=== PATIENT | female | born 1970 | race Caucasian/White ===

== ENCOUNTER 2020-05-01 08:13 | Outpatient (CLI) | payer MEDICAID, SELFPAY ==
--- NOTE | 2020-05-01 | MR_ITS ---
WS: [id number] MRI RIGHT SHOULDER HISTORY: POSSIBLE FOREIGN BODY, HX OF SHOULDER CUFF REPAIR COMPARISON: 04/16/2016 TECHNIQUE: Multiplanar sequences of the shoulder joint are submitted. Moderate AC joint hypertrophy. Small osteophyte from the distal undersurface of acromion with mild en croachment. Micro-metallic artifact at the AC joint from prior surgery. Full-thickness tear extends obliquely through the distal supraspinatus tendon over the humeral head. This tears along the far anterior surface of the supraspinatus tendon there is additional tendinopath y. Abnormal appearance of the infraspinatus tendon. There is lobulated fluid extending along the tend on through the infraspinatus muscle. Marked thickening of the distal tendon. There is mild atrophy of the supraspinatus muscle. No edema. Subscapularis tendon and muscle are negative. Biceps tendon is in normal position. Increased signal in the superior labrum similar to the prior odalis dy. MR/MR shoulder RT wo con* [id number] IMPRESSION: 1. Full-thickness tear through the distal anterior supraspinatus tendon with m ild atrophy of the supraspinatus muscle. 2. Significant lobulated fluid extending along the infraspinatus tendon throug h the muscle. There is also significant tendinopathy of the infraspinatus tendo n. Due to the fluid along the tendon there is probably a tear which I cannot de finitely identified. 3. Prior resection distal clavicle. 4. Osteophyte encroachment from the distal clavicle upon the supraspinatus mus mat.
== END 2020-05-01 08:14 | disposition home or self-care (01) ==
PROVIDERS: PCP Nurse Practitioner Family; Visit Provider Physician Assistant Medical
DX: R93.7 Abnormal findings on diagnostic imaging of other parts of musculoskeletal system (principal); M75.01 Adhesive capsulitis of right shoulder; S46.911A Strain of unspecified muscle, fascia and tendon at shoulder and upper arm level, right arm, initial encounter; X58.XXXA Exposure to other specified factors, initial encounter; M25.711 Osteophyte, right shoulder
CPT/HCPCS: 73221